=== PATIENT | male | born 1950 | race Caucasian/White ===

== ENCOUNTER 2020-02-29 11:54 | Emergency (ER) | payer OTHER, SELFPAY ==
[2020-02-29] VITALS (7 sets, daily range): BP systolic 138–207; BP diastolic 90–110; PULSE 85–98; RESP 12–31; TEMP 36.9–37.7; O2SAT 94–97; BMI 25.1
--- NOTE | 2020-02-29 12:12 | ED.GENADULT ---
HPI - General Adult General Chief complaint: Weakness Stated complaint: ams x4 days Time Seen by Provider: 02/29/20 12:06 Source: EMS Mode of arrival: EMS Limitations: no limitations History of Present Illness HPI narrative: This is a 70-year-old male who is a vet served when he was a teen up until the age 23 with past medical history that is significant for Parkinson's disease with history of hallucinations, multiple sclerosis, dementia, diverticular infection the past, dyslipidemia, COPD, anxiety disorder, history of AAA per is about 4 cm in being monitored by vascular and surgical history significant for back surgery in his mid 20s of his lumbar spine Whom presents via EMS from home with complaint of fall. Per EMS has had couple falls at home and overall has been more confused over the past 4 days or so and lives at home with . Patient does arrive with cervical collar in place by EMS although he is very slow with his speech she does report that he had a fall at home. He is alert and oriented x3. no focal neurological deficits appreciated upon arrival. I did have a lengthy conversation with the as documented below. At the moment he reports some vague pain in his lower abdomen per he has chronic pain that is generalized however he did complain of some nausea or past several weeks. No vomiting diarrhea. No recent travel or sick contacts. Refer to my phone conversation with the below. Onset (ago): day(s) Severity: mild Pain Consistency: constant Relieving factors: none Exacerbating factors: none Associated symptoms: denies other symptoms Related Data Home Medications Medication Instructions Recorded Confirmed carbidopa-levodopa 1 tab PO 6XD 02/29/20 02/29/20 clonazepam 0.25 mg PO BEDTIME 02/29/20 02/29/20 duloxetine [Cymbalta] 60 mg PO QAM 02/29/20 02/29/20 gabapentin 300 mg PO TID 02/29/20 02/29/20 trazodone 150 mg PO BEDTIME PRN 02/29/20 02/29/20 Allergies Allergy/AdvReac Type Severity Reaction Status Date / Time No Known Allergies Allergy Verified 02/29/20 11:59 [No Known Allergies*] Review of Systems Review of Systems: Constitutional: No Weight loss, No Fever, No Chills, No Night Sweats, No Fatigue, No Malaise ENT/Mouth: No Hearing loss, No Ear Pain, No Nasal Congestion, No Sinus Pain, No Hoarseness, No sore throat, No Rhinorrhea, No Swallowing Difficulty Eyes: No Eye Pain, No Swelling, No Redness, No Foreign Body, No Discharge, No Vision Changes Cardiovascular: No Chest Pain, No SOB, No Dyspnea on Exertion, No Orthopnea, No Edema, No Palpitations Respiratory: No Cough, No Sputum, No Wheezing, No Smoke Exposure, No Dyspnea Gastrointestinal: No Nausea, No Vomiting, No Diarrhea, No Constipation, + abdominal Pain, No Hematochezia, No Melena Genitourinary: No Dysuria, No Urinary Frequency, No Hematuria, No Urinary Incontinence, No Urgency, No Flank Pain, No Urinary Flow Changes, No Hesitancy Musculoskeletal: No joint pain, No Myalgias, No Joint Swelling Skin: No Skin Lesions, No rash Neuro: No Weakness, No Numbness, No Paresthesias, No Loss of Consciousness, No Dizziness, No Headache Psych: No Anxiety/Panic Heme/Lymph: No Bruising, No Bleeding,No Lymphadenopathy Endocrine: No Polyuria, No Polydipsia, No Temperature Intolerance Yes all other systems are reviewed and are negative Neurologic: Reports Abnormal speech present [facility] [place] Past Medical History Medical History Hypertension Multiple sclerosis Parkinsons Social History Social History Alcohol intake: unknown Smoking Status: Unknown if ever smoked Use of substances other than those prescribed or required for medical reasons: Unknown Advance Directives: No Advance Directives Information Provided: No Physical Exam Vital Signs: Vital Signs: Last Vital Signs Temp 99.1 F 02/29/20 19:12 Pulse 98 02/29/20 19:12 Resp 16 02/29/20 19:12 BP 176/91 H 02/29/20 19:12 Pulse Ox 94 02/29/20 19:12 Body Mass Index 25.1 Reviewed Const: Other: appears older than stated age General: cooperative; No acute distress or intoxicated appearing Nutritional Appearance: average body habitus Orientation/consciousness: patient oriented x3 Limitations: other limitations ( very hard of hearing) HENMT: Head: Yes normal to inspection Ears: hearing grossly normal bilaterally Eyes: General: appearance normal, both eyes and all related structures Visual Alonso: normal visual alonso by confrontation Neck: Neck: Yes normal visual inspection, No positive Brudzinski's sign, No positive Kernig's sign and No tender Thyroid: Thyroid normal Chest: Chest palpation & inspection: normal inspection of the chest Resp: Effort & Inspection: normal respiratory effort Auscultation: clear to auscultation bilaterally Cardio: Jugular venous distension: no JVD Rate: regular rate Rhythm: regular rhythm Heart sounds: S1 normal heart sound present and S2 normal heart sound present GI: Inspection: Yes normal to inspection Palpation (GI): Soft to palpation, nontender, no pulsatile masses and No Rebound tenderness present Percussion: Yes normal to percussion Auscultation: normal bowel sounds : General: Yes no CVA tenderness Back/Spine/Pelvis: Back: no CVA tenderness Skin: General skin exam: no rashes or lesions noted Neuro: General: patient oriented x3 Cranial nerves: Yes CN's II-XII intact bilaterally Cognition (Neuro): normal cognition Speech: Abnormal speech present Extrem: General: Yes normal to inspection Psych: Appearance: grossly normal Mental Status: mental status grossly normal Speech and movement: Normal speech and movement present Affect: normal affect Attitude: cooperative Thought process: Normal thought process present Thought content: Normal thought content present Insight: Good insight present (Psych) Judgement: Good judgement present (Psych) NIH Stroke Scale Internal: Initial- Upon Arrival Level of Consciousness: Alert Level of Consciousness Questions: Answers both questions correctly Level of Consciousness Commands: Performs both tasks correctly Best Gaze: Normal Visual: No visual loss Facial Palsy: Normal Motor Arm (Right): No drift Motor Arm (Left): No drift Motor Leg (Right): No drift Motor Leg (Left): No drift Limb Ataxia: Absent Sensory: Normal Best Language: No aphasia Dysarthia: Normal Extinction and Inattention: No abnormality Score: 0 Course Reevaluation(s) Reevaluation #1: 1215: Clarissa our 20 minute conversation summary at 57 dx with MS and parkinsons with hallucinations and behavioral problems Few weeks ago he feel in his room unwitnessed while she was outside mostly bed but does walk with assist over past few days more calling her name more at times which he has done in past last night son was visiting he fell again in his room son and helped him up over last night he fell again in his room This morning called VNA services as she felt she would need help taking care of him at home The VNA advised to come to ED for Eval given that he may have hit his head per has chronic back pain but nothing new since the fall Recently started on gabapentin being followed by Dr. Angulo Social: Past few years VNA in[facility]out [facility] paperwork done but pt declined but last fall [facility] but the pandemic hit She states [facility] She did look into [facility] But feels like she can not take care of home as she is elder she has COPD and is getting to much. CODE status discussion is HCP states not written yet she would like to form a [facility]- but she FULL CODE AT THIS TIME. Reevaluation #2: 1345 Head/ cervical spine CT neg, collar removed Resting comfortably CBC comparable to previous initial troponin resulted 4.4 remainder of the chemistries are still pending I did have a discussion with case management team regarding this case. Reevaluation #3: 1350 UA negative he did have a COVID-19 screen swab done for potential placement and at this time it is positive. He is hypodynamically stable. No upper respiratory symptoms. Case mng aware can still be placed if no medical reason for admit. Request PT eval. also informed at the time chem hemolized, reordered BP also elevated ? pain will tx with morphine and re-check. Asymptomatic otherwise Additional Reevaluation(s): [address] findings as reviewed below case discussed with vascular surgery Dr. Joseph. Will follow-up in a month. As it relates to his COVID chest x-ray, CT of the abdomen shows clear bases of the lungs. Patient hemodynamically stable. He is COVID positive again at this time pending PT evaluation in the morning and placement at short-term rehab. Patient will be signed out pending placement tomorrow morning. Medication reconciliation done and medications ordered. Consultations Consultation #1: Case discussed with Dr. Joseph vascular surgery regarding the CT scan findings of the infrarenal aortic aneurysm which is known to the patient being monitored on outpatient basis. There is some increase in size from May 2018 to today. This matter again was discussed with Dr. Joseph his recommendation at this point is to have the patient follow-up in the office in 1 month for re-evaluation and re-scanned. No further recommendations at this time. Medical Decision Making Medical Records Medical records reviewed: Yes I reviewed the patient's medical records. Medical records narrative: admission from 09/12/2018 reviewed discharge diagnosis hep a, acute liver failure, dementia with Parkinson's Lab Data Result diagrams: 02/29/20 12:33 02/29/20 13:58 Labs: Lab Results 02/29/20 02/29/20 02/29/20 Range/Units 12:30 12:30 12:33 WBC (4.8-10.8) X10*3/uL RBC (4.60-5.80) X10*6/uL Hgb (14.0-18.0) g/dl Hct (42-52) % MCV (80-98) fL MCH (27.0-33.0) pg MCHC (31.0-36.0) g/dl RDW (11.0-16.0) % Plt Count (160-400) X10*3/uL MPV (9.4-12.4) fL Immature Gran % (Auto) (0.0-0.4) % Neut % (Auto) (45-73) % Lymph % (Auto) (20-40) % [place] % (Auto) (2-11) % Eos % (Auto) (0-4) % Baso % (Auto) (0-2) % Lymph # (Auto) (1.2-4.9) X10*3/uL [place] # (Auto) (0.1-1.2) X10*3/uL Eos # (Auto) (0.0-0.4) X10*3/uL Baso # (Auto) (0.0-0.2) X10*3/uL Abs Immat Gran (auto) (0.00-0.03) X10*3/uL Absolute Neuts (auto) (2.0-8.3) X10*3/uL Absolute Nucleated RBC (0.0-0.012) X10*3/uL Nucleated RBC % (auto) (0.0-0.2) /100WBC PT (10.8-13.0) SEC INR (0.9-1.1) APTT (24.1-38.0) SEC Sodium Cancelled Potassium Cancelled Chloride Cancelled Carbon Dioxide Cancelled Anion Gap Cancelled BUN Cancelled Creatinine Cancelled Estim Creat Clear Calc Cancelled Estimated GFR Cancelled Random Glucose Cancelled Calcium Cancelled Magnesium Cancelled Total Bilirubin Cancelled AST Cancelled ALT Cancelled Alkaline Phosphatase Cancelled Troponin I High Sens (<3.5-35.0) ng/L Total Protein Cancelled Albumin Cancelled Urine Color YELLOW Urine Appearance HAZY Urine pH 6.5 (5.0-8.0) Ur Specific [place] 1.025 (1.005-1.025) Urine Protein NEG (NEG-TRACE) MG/DL Urine Glucose (UA) NEG (NEG) MG/DL Urine Ketones 5 (NEG) MG/DL Urine Blood NEG (NEG) Urine Nitrite NEG (NEG) Ur Leukocyte Esterase NEG (NEG) Urine RBC 0-2 (0) /HPF Urine WBC 0 (0-4) /HPF Ur Squamous Epith Cells NONE /LPF Urine Bacteria NONE /LPF Urine Mucus 1+ /LPF Coronavirus (PCR) POSITIVE A (Negative) Influenza Type A (PCR) NEGATIVE (Negative) Influenza Type B (PCR) NEGATIVE (Negative) RSV RNA Qual (PCR) NEGATIVE (Negative) 02/29/20 02/29/20 02/29/20 Range/Units 12:33 12:33 12:33 WBC 4.3 L (4.8-10.8) X10*3/uL RBC 4.76 (4.60-5.80) X10*6/uL Hgb 14.5 (14.0-18.0) g/dl Hct 43.4 (42-52) % MCV 91.2 (80-98) fL MCH 30.5 (27.0-33.0) pg MCHC 33.4 (31.0-36.0) g/dl RDW 12.7 (11.0-16.0) % Plt Count 166 (160-400) X10*3/uL MPV 10.9 (9.4-12.4) fL Immature Gran % (Auto) 0.5 H (0.0-0.4) % Neut % (Auto) 59.6 (45-73) % Lymph % (Auto) 21.1 (20-40) % [place] % (Auto) 18.1 H (2-11) % Eos % (Auto) 0.2 (0-4) % Baso % (Auto) 0.5 (0-2) % Lymph # (Auto) 0.9 L (1.2-4.9) X10*3/uL [place] # (Auto) 0.8 (0.1-1.2) X10*3/uL Eos # (Auto) 0.0 (0.0-0.4) X10*3/uL Baso # (Auto) 0.0 (0.0-0.2) X10*3/uL Abs Immat Gran (auto) 0.02 (0.00-0.03) X10*3/uL Absolute Neuts (auto) 2.6 (2.0-8.3) X10*3/uL Absolute Nucleated RBC 0.000 (0.0-0.012) X10*3/uL Nucleated RBC % (auto) 0.0 (0.0-0.2) /100WBC PT 12.7 (10.8-13.0) SEC INR 1.1 (0.9-1.1) APTT 35.3 (24.1-38.0) SEC Sodium Potassium Chloride Carbon Dioxide Anion Gap BUN Creatinine Estim Creat Clear Calc Estimated GFR Random Glucose Calcium Magnesium Total Bilirubin AST ALT Alkaline Phosphatase Troponin I High Sens 4.4 (<3.5-35.0) ng/L Total Protein Albumin Urine Color Urine Appearance Urine pH (5.0-8.0) Ur Specific [place] (1.005-1.025) Urine Protein (NEG-TRACE) MG/DL Urine Glucose (UA) (NEG) MG/DL Urine Ketones (NEG) MG/DL Urine Blood (NEG) Urine Nitrite (NEG) Ur Leukocyte Esterase (NEG) Urine RBC (0) /HPF Urine WBC (0-4) /HPF Ur Squamous Epith Cells /LPF Urine Bacteria /LPF Urine Mucus /LPF Coronavirus (PCR) (Negative) Influenza Type A (PCR) (Negative) Influenza Type B (PCR) (Negative) RSV RNA Qual (PCR) (Negative) 02/29/20 Range/Units 13:58 WBC (4.8-10.8) X10*3/uL RBC (4.60-5.80) X10*6/uL Hgb (14.0-18.0) g/dl Hct (42-52) % MCV (80-98) fL MCH (27.0-33.0) pg MCHC (31.0-36.0) g/dl RDW (11.0-16.0) % Plt Count (160-400) X10*3/uL MPV (9.4-12.4) fL Immature Gran % (Auto) (0.0-0.4) % Neut % (Auto) (45-73) % Lymph % (Auto) (20-40) % [place] % (Auto) (2-11) % Eos % (Auto) (0-4) % Baso % (Auto) (0-2) % Lymph # (Auto) (1.2-4.9) X10*3/uL [place] # (Auto) (0.1-1.2) X10*3/uL Eos # (Auto) (0.0-0.4) X10*3/uL Baso # (Auto) (0.0-0.2) X10*3/uL Abs Immat Gran (auto) (0.00-0.03) X10*3/uL Absolute Neuts (auto) (2.0-8.3) X10*3/uL Absolute Nucleated RBC (0.0-0.012) X10*3/uL Nucleated RBC % (auto) (0.0-0.2) /100WBC PT (10.8-13.0) SEC INR (0.9-1.1) APTT (24.1-38.0) SEC Sodium 138 Potassium 4.0 Chloride 104 Carbon Dioxide 25 Anion Gap 13 BUN 11 Creatinine 0.91 Estim Creat Clear Calc 72.0 Estimated GFR > 60 Random Glucose 102 Calcium 8.5 Magnesium 1.9 Total Bilirubin 0.5 AST 12 ALT < 6 Alkaline Phosphatase 95 Troponin I High Sens (<3.5-35.0) ng/L Total Protein 7.1 Albumin 4.4 Urine Color Urine Appearance Urine pH (5.0-8.0) Ur Specific [place] (1.005-1.025) Urine Protein (NEG-TRACE) MG/DL Urine Glucose (UA) (NEG) MG/DL Urine Ketones (NEG) MG/DL Urine Blood (NEG) Urine Nitrite (NEG) Ur Leukocyte Esterase (NEG) Urine RBC (0) /HPF Urine WBC (0-4) /HPF Ur Squamous Epith Cells /LPF Urine Bacteria /LPF Urine Mucus /LPF Coronavirus (PCR) (Negative) Influenza Type A (PCR) (Negative) Influenza Type B (PCR) (Negative) RSV RNA Qual (PCR) (Negative) Imaging Data CT scan - abdomen: Radiologist's impression: [address] [address] [address] Scan Report Signed Patient: Jalil EsquivleMR#: [id number] : 9Acct:[id number] Age/Sex: 70 / MADM Date: 02/29/20 Loc: HO.ED Attending Dr: Ordering Physician: Jareth Garibay NP Date of Service: 02/29/20 Procedure(s): CT abdomen pelvis w con Accession Number(s): [id number] cc: Jareth Garibay BL[employer]ATHER [employer]TER~ EXAMINATION: CT ABDOMEN AND PELVIS WITH CONTRAST CLINICAL INFORMATION: Abdominal pain COMPARISON: June 10, 2018 TECHNIQUE: Multidetector volumetric images were obtained from the superior aspect of the liver through the pubic symphysis following administration 85 mL of Omnipaque 350 intravenous contrast. Sagittal and coronal reformatted images were obtained on the technologist's workstation. Oral contrast: No This CT examination was performed using dose optimization techniques as appropriate, variously including the following: *Automated exposure control *Adjustment of mA and/or kV according to patient size (this includes techniques or standardized protocols for targeted exams where dose is matched to indication/reason for exam; i.e. extremities or head) *Use of iterative reconstruction technique DLP: 483 mGy-cm FINDINGS: LUNG BASES: The visualized lung bases are unremarkable. No pleural or pericardial effusion. LIVER, GALLBLADDER, AND BILIARY TREE: The liver is normal in size, shape, and attenuation. No focal hepatic lesion or biliary ductal dilatation is present. There is a sub-5 mm cyst seen within segment 8. The gallbladder is unremarkable with no evidence of radiopaque gallstones, gallbladder wall thickening, or obvious pericholecystic inflammatory changes. PANCREAS: Unremarkable. SPLEEN: Unremarkable. ADRENAL GLANDS: Unremarkable. KIDNEYS AND URETERS: The kidneys are normal in size, shape, and attenuation. No hydronephrosis, hydroureter, or calculi seen. No perinephric stranding. There is a 1 cm right parapelvic cyst and a 0.5 cm right cortical cyst. BLADDER: Unremarkable. GASTROINTESTINAL TRACT: No dilated loops of large or small bowel are evident. No free abdominal air. No free fluid. No pericolonic inflammatory change. No evidence of acute diverticulitis. The appendix is visualized and appears unremarkable. There is a large amount stool seen within the colon. ABDOMINAL WALL: No significant hernia is appreciated. LYMPH NODES: No lymphadenopathy appreciated. VASCULAR: There is an approximately 4.6 x 4.2 cm infrarenal abdominal aortic aneurysm with large amount of thrombus and patent lumen of approximately 2.6 cm in diameter. The aneurysm extends for a length of approximately 6 cm and does not extend into the bifurcation. The inferior mesenteric artery is seen to takeoff from the aneurysmal portion of the abdominal aorta. There is calcified plaque seen aortoiliac system. There are circumaortic left renal veins. PELVIC VISCERA: Unremarkable. OSSEOUS STRUCTURES: No suspicious destructive bony lesions identified. Multilevel degenerative disc disease is seen within the lumbar spine. There is some degenerative change of the sacroiliac joints bilaterally. There is a grade 1 spinal listhesis L4-L5. Facet arthropathy is seen L3-S1. CT/CT abdomen pelvis w con IMPRESSION: No evidence of bowel obstruction. Large amount stool within the colon. No evidence of obstructive uropathy. Enlarging infrarenal abdominal aortic aneurysm which on study of June 10, 2018 measured approximately 3.9 cm in AP dimension and now measures approximately 4.6 cm in diameter. No evidence of leak. This critical result was discussed with Jareth Garibay at 4:55 PM on February 29, 2020 and it was ascertained that the content and urgency of the report was understood at the time of direct communication. Dictated By:BLADIMIR ASH MD Signed By:<Electronically signed by BLADIMIR ASH MD in OV>02/29/20 6525 DD/ 1229 TD/TT: Fiberglass Ski Maker: SHIVANI ECG Data Interpretation: normal sinus rhythm Rate 96 Incomplete right bundle branch block Nonspecific T-wave abnormality When compared to 09/15/2018 the QT/QTC duration has improved No significant abnormality was found Discharge Plan Discharge Clinical Impression: Falls, Parkinson's disease, COVID-19 Prescriptions: No Action carbidopa-levodopa 25-100 mg Tablet 1 tab PO 6XD RF: 0 clonazepam 0.25 mg Tablet,Disintegrating 0.25 mg PO BEDTIME RF: 0 duloxetine [Cymbalta] 60 mg Capsule,Delayed Release(Dr/Ec) 60 mg PO QAM RF: 0 gabapentin 300 mg capsule 300 mg PO TID RF: 0 trazodone 150 mg tablet 150 mg PO BEDTIME PRN (Reason: Insomnia) RF: 0
--- NOTE | 2020-02-29 12:13 | XR_ITS ---
EXAMINATION: XR CHEST CLINICAL INFORMATION: Fall, weakness COMPARISON: Chest radiographs 09/15/2018, 06/10/2018 TECHNIQUE: Portable upright AP view of the chest was obtained. FINDINGS: Patient is slightly rotated to the right. The lungs are clear. There is no airspace consolidation or definite groundglass opacity. The costophrenic sulci are clear. The heart is normal in size. The hilar and mediastinal contours and bony structures are unremarkable. XR/XR chest 1V IMPRESSION: Unremarkable examination.
--- NOTE | 2020-02-29 12:14 | CT_ITS ---
EXAMINATION: CT BRAIN AND CT CERVICAL SPINE. CLINICAL INFORMATION: Fall. COMPARISON: CT brain 09/21/2018 TECHNIQUE: 5 mm thin axial and reformatted 2 mm thin sagittal and coronal images of brain were obtained. Subsequently axial 3 mm thin and reformatted 2 mm thin sagittal and coronal images of cervical spine were obtained. DL [id number] FINDINGS: BRAIN: There is no acute intra-axial, extra-axial bleed, masses, collection or midline shift though acute infarct in evolution. The james to white matter differentiation is maintained. The lateral ventricles are symmetrical in size and mildly prominent. There is mild periventricular hypodensity in both cerebral hemispheres without mass effect. Bone windows reveal no calvarial abnormality. There is a small polyp or retention cyst left sphenoid sinus. Rest of the paranasal sinuses and mastoid air cells are well-aerated.. There is no scalp abnormality. The soft tissues are normal. CERVICAL SPINE: There is mild straightening of cervical lordosis. The vertebral heights and alignment is normal. There is loss of C4-C5, C5-C6 disc heights with ventral spondylosis.. Rest of the disc heights are normal. The craniovertebral junction is normal. There is mild superior spurring C1-C2 disc level. There is no visible acute fracture, dislocation or subluxation. There is moderate right facet joint arthropathy C3-C4, C4-C5, C5-C6, C7-T1 and T2 and S2 disc levels disc levels. The prevertebral and paravertebral soft tissues are normal. The lung apices are clear. CT/CT cervical spine wo con IMPRESSION: No acute intracranial process seen. Degenerative disc changes cervical spine. No visible acute fracture or dislocation seen.
--- NOTE | 2020-02-29 12:14 | ECG_ITS ---
Test Reason : FALL Blood Pressure : / mmHG Vent. Rate : 096 BPM Atrial Rate : 096 BPM P-R Int : 166 ms QRS Dur : 100 ms QT Int : 348 ms P-R-T Axes : 085 048 043 degrees QTc Int : 439 ms Normal sinus rhythm Incomplete right bundle branch block Nonspecific ST abnormality Abnormal ECG When compared with ECG of 15-SEP-2018 12:56, T wave inversion no longer evident in Lateral leads Referred By: Jareth Garibay Electronically Signed By:LEW MATHEWS MD
--- NOTE | 2020-02-29 12:29 | CT_ITS ---
EXAMINATION: CT ABDOMEN AND PELVIS WITH CONTRAST CLINICAL INFORMATION: Abdominal pain COMPARISON: June 10, 2018 TECHNIQUE: Multidetector volumetric images were obtained from the superior aspect of the liver through the pubic symphysis following administration 85 mL of Omnipaque 350 intravenous contrast. Sagittal and coronal reformatted images were obtained on the technologist's workstation. Oral contrast: No This CT examination was performed using dose optimization techniques as appropriate, variously including the following: *Automated exposure control *Adjustment of mA and/or kV according to patient size (this includes techniques or standardized protocols for targeted exams where dose is matched to indication/reason for exam; i.e. extremities or head) *Use of iterative reconstruction technique DLP: 483 mGy-cm FINDINGS: LUNG BASES: The visualized lung bases are unremarkable. No pleural or pericardial effusion. LIVER, GALLBLADDER, AND BILIARY TREE: The liver is normal in size, shape, and attenuation. No focal hepatic lesion or biliary ductal dilatation is present. There is a sub-5 mm cyst seen within segment 8. The gallbladder is unremarkable with no evidence of radiopaque gallstones, gallbladder wall thickening, or obvious pericholecystic inflammatory changes. PANCREAS: Unremarkable. SPLEEN: Unremarkable. ADRENAL GLANDS: Unremarkable. KIDNEYS AND URETERS: The kidneys are normal in size, shape, and attenuation. No hydronephrosis, hydroureter, or calculi seen. No perinephric stranding. There is a 1 cm right parapelvic cyst and a 0.5 cm right cortical cyst. BLADDER: Unremarkable. GASTROINTESTINAL TRACT: No dilated loops of large or small bowel are evident. No free abdominal air. No free fluid. No pericolonic inflammatory change. No evidence of acute diverticulitis. The appendix is visualized and appears unremarkable. There is a large amount stool seen within the colon. ABDOMINAL WALL: No significant hernia is appreciated. LYMPH NODES: No lymphadenopathy appreciated. VASCULAR: There is an approximately 4.6 x 4.2 cm infrarenal abdominal aortic aneurysm with large amount of thrombus and patent lumen of approximately 2.6 cm in diameter. The aneurysm extends for a length of approximately 6 cm and does not extend into the bifurcation. The inferior mesenteric artery is seen to takeoff from the aneurysmal portion of the abdominal aorta. There is calcified plaque seen aortoiliac system. There are circumaortic left renal veins. PELVIC VISCERA: Unremarkable. OSSEOUS STRUCTURES: No suspicious destructive bony lesions identified. Multilevel degenerative disc disease is seen within the lumbar spine. There is some degenerative change of the sacroiliac joints bilaterally. There is a grade 1 spinal listhesis L4-L5. Facet arthropathy is seen L3-S1. CT/CT abdomen pelvis w con IMPRESSION: No evidence of bowel obstruction. Large amount stool within the colon. No evidence of obstructive uropathy. Enlarging infrarenal abdominal aortic aneurysm which on study of June 10, 2018 measured approximately 3.9 cm in AP dimension and now measures approximately 4.6 cm in diameter. No evidence of leak. This critical result was discussed with Jareth Garibay at 4:55 PM on February 29, 2020 and it was ascertained that the content and urgency of the report was understood at the time of direct communication.
[2020-02-29] MEDS: 0.9 % Sodium Chloride 1,000 ML 999 ML IV (12:40)
[2020-02-29 12:41] LABS: MANUAL DIFF FLAG NO
[2020-02-29 12:45] LABS: Basophils Percent Auto 0.5 % (0-2); Eosinophils Percent Auto 0.2 % (0-4); Hematocrit 43.4 % (42-52); Hemoglobin 14.5 g/dl (14.0-18.0); Imm Gran Abs Auto 0.02 X10*3/uL (0.00-0.03); Imm Gran Pct Auto 0.5 % (0.0-0.4); Lymphocytes Absolute Auto 0.9 X10*3/uL (1.2-4.9); Lymphocytes Percent Auto 21.1 % (20-40); Mean Corpuscular HGB Conc 33.4 g/dl (31.0-36.0); Mean Corpuscular Hemoglobin 30.5 pg (27.0-33.0); Mean Corpuscular Volume 91.2 fL (80-98); Mean Platelet Volume 10.9 fL (9.4-12.4); Monocytes Absolute Auto 0.8 X10*3/uL (0.1-1.2); Monocytes Percent Auto 18.1 % (2-11); Neutrophils Absolute Auto 2.6 X10*3/uL (2.0-8.3); Neutrophils Percent Auto 59.6 % (45-73); Platelet Count 166 X10*3/uL (160-400); Red Blood Count 4.76 X10*6/uL (4.60-5.80); Red Cell Distribution Width 12.7 % (11.0-16.0); White Blood Count 4.3 X10*3/uL (4.8-10.8)
[2020-02-29 12:51] LABS: Glucose Urine UA NEG (NEG); Leukocyte Esterase Urine NEG (NEG); Nitrite Urine NEG (NEG); PH 6.5 (5.0-8.0); Specific Gravity - Urine 1.025 (1.005-1.025); Urine Blood NEG (NEG); Urine Ketones 5 MG/DL (NEG); Urine Protein NEG (NEG-TRACE)
[2020-02-29 12:51] LABS: INTERNATIONAL NORM RATIO 1.1 (0.9-1.1); Prothrombin Time 12.7 SEC (10.8-13.0)
[2020-02-29 12:54] LABS: Partial Thromboplastin Time 35.3 SEC (24.1-38.0)
[2020-02-29 12:56] LABS: Color Urine YELLOW
[2020-02-29 12:57] LABS: Appearance Urine HAZY
[2020-02-29 13:03] LABS: Mucus Urine 1+ /LPF; RBC Urine 0-2 /HPF (0); WBC Urine 0 /HPF (0-4)
[2020-02-29 13:15] LABS: Troponin-I High Sensitivity 4.4 ng/L (<3.5-35.0)
[2020-02-29 13:18] LABS: Influenza A PCR NEGATIVE (Negative); Influenza B PCR NEGATIVE (Negative); Resp Syncy Virus RNA Qual PCR NEGATIVE (Negative); SARS COV2 PCR INHOUSE POSITIVE (Negative)
[2020-02-29] MEDS: Morphine Sulfate 4 MG/ML CARTRIDGE 2 MG IVPUSH (14:14)
[2020-02-29] MEDS: ondansetron HCL 4 MG/2 ML VIAL IVPUSH (14:15)
[2020-02-29 14:47] LABS: Albumin Level 4.4 g/dL (3.5-5.0); Alkaline Phosphatase 95 U/L (39-117); Anion Gap 13 (12-20); Aspartate Amino Transferase 12 U/L (5-37); Bilirubin Total 0.5 mg/dL (0.0-1.0); Blood Urea Nitrogen 11 mg/dL (9-16); Calcium 8.5 mg/dL (8.4-10.2); Carbon Dioxide 25 mmol/L (22-29); Chloride 104 mmol/L (96-108); Estimated Glomerular Filt Rate > 60; Glucose Random 102 mg/dL (60-115); Magnesium 1.9 mg/dL (1.6-2.6); Sodium 138 mmol/L (135-145); Total Protein 7.1 g/dL (6.5-8.0)
[2020-02-29 15:00] LABS: Alanine Aminotransferase < 6 U/L (0-40)
[2020-02-29] MEDS: iohexoL 350 MG/ML 100 ML INFUS..BTL IV (16:02)
--- NOTE | 2020-02-29 16:35 | MHC.CM.ED ---
Received case management consult from MERON [facility]. Patient came to ER due to weekness. Work essentially negative. Patient found to be covid positive. Spoke with patient's . Explained patient is Covid positive and recommendations for Quarantining and Covid testing. Patient lives with Clarissa. Patient will be seen by physical therapy tomorrow morning. Clarissa agreeable to referral being broadcasted to see which facilities can offer a bed. Anticipate patient will remain in ER overnight. Clarissa verbalized understanding. Continue to monitor for d/c needs.
--- NOTE | 2020-02-29 17:35 | PC.NURSE ---
report taken from jaylon wolfe pt moved to isolation area d/t covid+. pt awaiting snf placement by case mgmt. pt attempting to get up from stretcher, sts i need to pee . pt appears to have peed on floor. sts my is gonna think i suck . back to bed w/o incident.
--- NOTE | 2020-02-29 17:59 | PC.NURSE ---
pt pivoted to commode x 2 for void.
--- NOTE | 2020-02-29 19:24 | PC.NURSE ---
Patient with urinary urgency otherwise calm and cooperative. Aware of person and place. Unsure of reason as to why he is here.
--- NOTE | 2020-02-29 20:29 | PC.NURSE ---
Spoke with Clarissa () on phone for med list. All meds updated and will be ordered by OBSTETRICS/GYNECOLOGY NURSE. [place] cath placed for frequent urination.
[2020-02-29] MEDS: clonazePAM 0.5 MG TABLET 0.25 MG PO (20:54)
[2020-02-29] MEDS: Carbidopa/Levodopa 25/100 TABLET 1 TAB PO (20:54)
[2020-02-29] MEDS: Gabapentin 300 MG CAPSULE PO (20:55)
[2020-02-29] MEDS: traZODone HCL 50 MG TABLET 150 MG PO (20:55)
[2020-02-29] MEDS: Carbidopa/Levodopa 25/100 TABLET 2 TAB PO (21:07)
--- NOTE | 2020-02-29 21:40 | PC.NURSE ---
HS medications given. Patient sleeping. [place] cath remains in place. BP WNL. Will continue to monitor.
[2020-03-01 02:05] VITALS: PULSE 81; RESP 16
[2020-03-01 03:59] VITALS: BP 163/102; PULSE 87; RESP 18; TEMP 37.2; O2SAT 94
[2020-03-01 06:17] VITALS: BP 147/87; PULSE 86; RESP 18; TEMP 36.4; O2SAT 96
[2020-03-01] MEDS: Carbidopa/Levodopa 25/100 TABLET 2 TAB PO ×2 (06:59→09:53)
[2020-03-01 07:38] VITALS: BP 147/87; PULSE 86; O2SAT 96
--- NOTE | 2020-03-01 09:27 | MHC.CM.ED ---
Patient remains in ER. Spoke with patient's Clarissa via telephone at [phone]. [facility] is only facility in the area that is able to offer a bed at this time. is agreeable to [facility]. Karen at [facility] aware and will attempt to obtain insurance auth. Continue to monitor for d/c needs.
[2020-03-01] MEDS: Gabapentin 300 MG CAPSULE PO (09:30)
[2020-03-01] MEDS: DULoxetine HCl 60 MG CAPSULE.DR PO (09:31)
[2020-03-01 09:54] VITALS: BP 147/96; PULSE 88; RESP 18; O2SAT 96
[2020-03-01 11:48] VITALS: BP 148/96; PULSE 88; RESP 18; TEMP 37.1; O2SAT 97
== END 2020-03-05 07:21 | disposition skilled nursing facility (03) ==
PROVIDERS: Nurse Practitioner Primary Care; Emergency Provider Emergency Medicine; PCP Internal Medicine
DX: U07.1 COVID-19 (principal); R53.1 Weakness; I71.4 Abdominal aortic aneurysm, without rupture; G20 Parkinson's disease; F02.81 Dementia in other diseases classified elsewhere, unspecified severity, with behavioral disturbance; Z91.81 History of falling; I10 Essential (primary) hypertension; G35 Multiple sclerosis; Z79.899 Other long term (current) drug therapy
CPT/HCPCS: 0241U; 36415; 70450; 71045; 72125; 74177; 80053; 81001; 83735; 84484; 85025; 85610; 85730; 93005; 97163; 99284; J2270; J2405; Q9967

== ENCOUNTER 2020-03-02 07:41 | Outpatient (REF) | payer OTHER, SELFPAY ==
[2020-03-02 09:33] LABS: MANUAL DIFF FLAG NO
[2020-03-02 09:39] LABS: Basophils Percent Auto 0.2 % (0-2); Hematocrit 47.3 % (42-52); Imm Gran Abs Auto 0.01 X10*3/uL (0.00-0.03); Imm Gran Pct Auto 0.2 % (0.0-0.4); Lymphocytes Absolute Auto 1.4 X10*3/uL (1.2-4.9); Mean Corpuscular HGB Conc 33.8 g/dl (31.0-36.0); Mean Corpuscular Hemoglobin 30.8 pg (27.0-33.0); Mean Platelet Volume 11.7 fL (9.4-12.4); Monocytes Absolute Auto 0.9 X10*3/uL (0.1-1.2); Monocytes Percent Auto 14.6 % (2-11); Neutrophils Absolute Auto 3.9 X10*3/uL (2.0-8.3); Platelet Count 196 X10*3/uL (160-400); Red Cell Distribution Width 12.9 % (11.0-16.0); White Blood Count 6.2 X10*3/uL (4.8-10.8)
[2020-03-02 10:00] LABS: Alanine Aminotransferase 9 U/L (0-40); Albumin Level 4.4 g/dL (3.5-5.0); Alkaline Phosphatase 89 U/L (39-117); Anion Gap 18 (12-20); Aspartate Amino Transferase 28 U/L (5-37); Bilirubin Total 0.7 mg/dL (0.0-1.0); Blood Urea Nitrogen 21 mg/dL (9-16); Calcium 8.9 mg/dL (8.4-10.2); Carbon Dioxide 23 mmol/L (22-29); Chloride 100 mmol/L (96-108); Estimated Glomerular Filt Rate > 60; Glucose Random 95 mg/dL (60-115); Potassium 4.3 mmol/l (3.3-5.1); Sodium 137 mmol/L (135-145); Total Protein 7.5 g/dL (6.5-8.0)
== END 2020-03-02 07:42 | disposition home or self-care (01) ==
LOC: HO.MMNH1L 07:41
PROVIDERS: Visit Provider Family Medicine
DX: D64.9 Anemia, unspecified (principal); G20 Parkinson's disease; U07.1 COVID-19
CPT/HCPCS: 36415; 80053; 85025

== ENCOUNTER 2020-03-04 | Outpatient (REF) | payer OTHER, SELFPAY ==
[2020-03-04 07:52] LABS: Hematocrit 48.4 % (42-52); Mean Corpuscular HGB Conc 33.1 g/dl (31.0-36.0); Mean Corpuscular Hemoglobin 30.4 pg (27.0-33.0); Mean Platelet Volume 11.6 fL (9.4-12.4); Platelet Count 179 X10*3/uL (160-400); Red Blood Count 5.26 X10*6/uL (4.60-5.80); Red Cell Distribution Width 12.7 % (11.0-16.0); White Blood Count 4.7 X10*3/uL (4.8-10.8)
[2020-03-04 08:26] LABS: Anion Gap 14 (12-20); Blood Urea Nitrogen 21 mg/dL (9-16); Calcium 8.7 mg/dL (8.4-10.2); Carbon Dioxide 30 mmol/L (22-29); Chloride 98 mmol/L (96-108); Estimated Glomerular Filt Rate > 60; Glucose Random 77 mg/dL (60-115); Potassium 3.9 mmol/l (3.3-5.1); Sodium 138 mmol/L (135-145)
== END 2020-03-04 00:01 | disposition home or self-care (01) ==
LOC: HO.MMNH1L
PROVIDERS: Visit Provider Family Medicine
DX: F03.90 Unspecified dementia, unspecified severity, without behavioral disturbance, psychotic disturbance, mood disturbance, and anxiety (principal)
CPT/HCPCS: 36415; 80048; 85027

== ENCOUNTER 2021-05-22 06:12 | Outpatient (REF) | payer OTHER, SELFPAY ==
[2021-05-22 07:52] LABS: MANUAL DIFF FLAG NO
[2021-05-22 07:53] LABS: Basophils Percent Auto 0.3 % (0-2); Eosinophils Percent Auto 0.6 % (0-4); Hematocrit 40.8 % (42.0-52.0); Hemoglobin 13.4 g/dl (14.0-18.0); Imm Gran Abs Auto 0.03 X10*3/uL (0.00-0.03); Imm Gran Pct Auto 0.5 % (0.0-0.4); Lymphocytes Absolute Auto 1.9 X10*3/uL (1.2-4.9); Lymphocytes Percent Auto 28.8 % (20-40); Mean Corpuscular HGB Conc 32.8 g/dl (31.0-36.0); Mean Corpuscular Hemoglobin 30.7 pg (27.0-33.0); Mean Corpuscular Volume 93.4 fL (80.0-98.0); Mean Platelet Volume 11.2 fL (9.4-12.4); Monocytes Absolute Auto 0.5 X10*3/uL (0.1-1.2); Monocytes Percent Auto 7.8 % (2-11); Neutrophils Absolute Auto 4.1 x10*3/uL (2.0-8.3); Platelet Count 235 X10*3/uL (160-400); Red Blood Count 4.37 X10*6/uL (4.60-5.80); Red Cell Distribution Width 12.7 % (11.0-16.0); White Blood Count 6.6 X10*3/uL (4.8-10.8)
[2021-05-22 07:58] LABS: Appearance Urine HAZY; Color Urine YELLOW; Glucose Urine UA NEG (NEG); Leukocyte Esterase Urine NEG (NEG); Nitrite Urine NEG (NEG); PH 7.5 (5.0-8.0); Specific Gravity - Urine 1.015 (1.005-1.025); Urine Blood NEG (NEG); Urine Ketones NEG (NEG); Urine Protein NEG (NEG-TRACE)
[2021-05-22 08:06] LABS: Alanine Aminotransferase < 6 U/L (0-40); Alkaline Phosphatase 94 U/L (39-117); Anion Gap 13 (12-20); Aspartate Amino Transferase 10 U/L (5-37); Bilirubin Total 0.7 mg/dL (0.0-1.0); Blood Urea Nitrogen 13 mg/dL (9-16); Calcium 9.1 mg/dL (8.4-10.2); Carbon Dioxide 27 mmol/L (22-29); Chloride 104 mmol/L (96-108); Cholesterol 156 mg/dL; Estimated Glomerular Filt Rate > 60; Glucose Fasting 106 mg/dL (60-99); HDL Cholesterol 35 mg/dL; LDL Cholesterol Calculated 109 mg/dl; Potassium 4.2 mmol/L (3.3-5.1); Sodium 140 mmol/L (135-145); Total Protein 6.4 g/dL (6.5-8.0); Triglycerides 60 mg/dL
[2021-05-22 08:26] LABS: Thyroid Stimulating Hormone 1.23 uIU/mL (0.32-4.0)
[2021-05-22 09:08] LABS: Vitamin B12 149 pg/mL (200-900)
[2021-05-24 14:21] LABS: TS Negative Control Passed; TS Panel A 0; TS Panel B 0; TS Positive Control Passed; TSpotTB Negative (Negative)
== END 2021-05-22 06:13 | disposition home or self-care (01) ==
LOC: HO.HSH4E 06:12
PROVIDERS: Visit Provider Internal Medicine Endocrinology, Diabetes & Metabolism
DX: Z02.2 Encounter for examination for admission to residential institution (principal); Z11.1 Encounter for screening for respiratory tuberculosis
CPT/HCPCS: 36415; 80053; 80061; 81003; 82607; 84443; 85025; 86481

== ENCOUNTER 2021-10-31 14:36 | Outpatient (REF) | payer OTHER, SELFPAY ==
[2021-10-31 09:29] LABS: Vitamin B12 385 pg/mL (200-900)
== END 2021-10-31 14:37 | disposition home or self-care (01) ==
LOC: HO.HSH4E 14:36
PROVIDERS: Visit Provider Internal Medicine Endocrinology, Diabetes & Metabolism
DX: D64.9 Anemia, unspecified (principal)
CPT/HCPCS: 36415; 82607

== ENCOUNTER 2022-05-11 06:02 | Outpatient (REF) | payer OTHER, SELFPAY ==
[2022-05-11 07:09] LABS: Anion Gap 11 (12-20); Blood Urea Nitrogen 14 mg/dL (9-16); Calcium 9.4 mg/dL (8.4-10.2); Carbon Dioxide 26 mmol/L (22-29); Chloride 108 mmol/L (96-108); Estimated Glomerular Filt Rate > 60; Glucose Random 102 mg/dL (60-115); Potassium 4.2 mmol/L (3.3-5.1); Sodium 141 mmol/L (135-145)
== END 2022-05-11 06:03 | disposition home or self-care (01) ==
LOC: HO.HSH4E 06:02
PROVIDERS: Visit Provider Internal Medicine
DX: G20 Parkinson's disease (principal)
CPT/HCPCS: 36415; 80048

== ENCOUNTER 2022-08-04 11:16 | Outpatient (REF) | payer OTHER, SELFPAY ==
[2022-08-04 11:36] LABS: Appearance Urine Clear; Color Urine Yellow; Glucose Urine UA Negative (Negative); Leukocyte Esterase Urine Negative (Negative); Nitrite Urine Negative (Negative); PH 5.5 (5.0-9.0); Specific Gravity - Urine 1.025 (1.005-1.025); Urine Blood Negative (Negative); Urine Ketones Trace mg/dL (Negative); Urine Protein Negative (Neg-Trace)
== END 2022-08-04 11:17 | disposition home or self-care (01) ==
LOC: HO.HSH4E 11:16
PROVIDERS: Visit Provider Internal Medicine Endocrinology, Diabetes & Metabolism
DX: I10 Essential (primary) hypertension (principal); G20 Parkinson's disease; R41.82 Altered mental status, unspecified
CPT/HCPCS: 81003

== ENCOUNTER 2022-08-05 06:19 | Outpatient (REF) | payer OTHER, SELFPAY ==
[2022-08-05 06:34] LABS: Basophils Percent Auto 0.6 % (0-2); Eosinophils Absolute Auto 0.1 X10*3/uL (0.0-0.4); Eosinophils Percent Auto 1.2 % (0-4); Hematocrit 43.1 % (42.0-52.0); Hemoglobin 14.4 g/dl (14.0-18.0); Imm Gran Abs Auto 0.03 X10*3/uL (0.00-0.03); Imm Gran Pct Auto 0.6 % (0.0-0.4); Lymphocytes Absolute Auto 1.7 X10*3/uL (1.2-4.9); Lymphocytes Percent Auto 34.3 % (20-40); MANUAL DIFF FLAG SCAN; Mean Corpuscular HGB Conc 33.4 g/dl (31.0-36.0); Mean Corpuscular Hemoglobin 30.9 pg (27.0-33.0); Mean Corpuscular Volume 92.5 fL (80.0-98.0); Monocytes Absolute Auto 0.4 X10*3/uL (0.1-1.2); Monocytes Percent Auto 7.7 % (2-11); Neutrophils Absolute Auto 2.8 x10*3/uL (2.0-8.3); Neutrophils Percent Auto 55.6 % (45-73); PLT CLUMP 1; Red Blood Count 4.66 X10*6/uL (4.60-5.80); Red Cell Distribution Width 12.9 % (11.0-16.0); SCAN SMEAR FLAG 1
[2022-08-05 06:53] LABS: Alanine Aminotransferase < 5 U/L (0-40); Albumin Level 4.2 g/dL (3.5-5.0); Alkaline Phosphatase 67 U/L (39-117); Anion Gap 12 (12-20); Aspartate Amino Transferase 13 U/L (5-37); Bilirubin Total 0.6 mg/dL (0.0-1.0); Blood Urea Nitrogen 16 mg/dL (9-16); Calcium 9.4 mg/dL (8.4-10.2); Carbon Dioxide 24 mmol/L (22-29); Chloride 109 mmol/L (96-108); Estimated Glomerular Filt Rate > 60; Glucose Fasting 86 mg/dL (60-99); Potassium 4.5 mmol/L (3.3-5.1); Sodium 140 mmol/L (135-145); Total Protein 6.6 g/dL (6.5-8.0)
[2022-08-05 06:54] LABS: Platelet Count 139 X10*3/uL (160-400); SLIDE REVIEW VERIFIED; White Blood Count 5.1 X10*3/uL (4.8-10.8)
== END 2022-08-05 06:20 | disposition home or self-care (01) ==
LOC: HO.HSH4E 06:19
PROVIDERS: Visit Provider Internal Medicine Endocrinology, Diabetes & Metabolism
DX: G20 Parkinson's disease (principal); N40.0 Benign prostatic hyperplasia without lower urinary tract symptoms
CPT/HCPCS: 36415; 80053; 85025

== ENCOUNTER 2022-12-02 06:37 | Outpatient (REF) | payer OTHER, SELFPAY ==
[2022-12-02 06:40] LABS: MANUAL DIFF FLAG NO
[2022-12-02 06:53] LABS: Basophils Percent Auto 0.4 % (0-2); Eosinophils Absolute Auto 0.1 X10*3/uL (0.0-0.4); Eosinophils Percent Auto 1.1 % (0-4); Hemoglobin 14.9 g/dl (14.0-18.0); Imm Gran Abs Auto 0.02 X10*3/uL (0.00-0.03); Imm Gran Pct Auto 0.4 % (0.0-0.4); Lymphocytes Absolute Auto 1.6 X10*3/uL (1.2-4.9); Lymphocytes Percent Auto 27.2 % (20-40); Mean Corpuscular HGB Conc 33.9 g/dl (31.0-36.0); Mean Corpuscular Hemoglobin 31.2 pg (27.0-33.0); Mean Corpuscular Volume 92.1 fL (80.0-98.0); Mean Platelet Volume 11.5 fL (9.4-12.4); Monocytes Absolute Auto 0.5 X10*3/uL (0.1-1.2); Monocytes Percent Auto 8.8 % (2-11); Neutrophils Absolute Auto 3.6 x10*3/uL (2.0-8.3); Neutrophils Percent Auto 62.1 % (45-73); Platelet Count 208 X10*3/uL (160-400); Red Blood Count 4.78 X10*6/uL (4.60-5.80); Red Cell Distribution Width 12.2 % (11.0-16.0); White Blood Count 5.7 X10*3/uL (4.8-10.8)
[2022-12-02 07:12] LABS: Alanine Aminotransferase < 5 U/L (0-40); Albumin Level 4.4 g/dL (3.5-5.0); Alkaline Phosphatase 75 U/L (39-117); Anion Gap 14 (12-20); Aspartate Amino Transferase 15 U/L (5-37); Bilirubin Total 0.7 mg/dL (0.0-1.0); Blood Urea Nitrogen 16 mg/dL (9-16); Calcium 9.6 mg/dL (8.4-10.2); Carbon Dioxide 23 mmol/L (22-29); Chloride 108 mmol/L (96-108); Estimated Glomerular Filt Rate > 60; Glucose Fasting 91 mg/dL (60-99); Potassium 3.6 mmol/L (3.3-5.1); Sodium 141 mmol/L (135-145); Total Protein 7.1 g/dL (6.5-8.0)
== END 2022-12-02 06:38 | disposition home or self-care (01) ==
LOC: HO.HSH4E 06:37
PROVIDERS: Visit Provider Internal Medicine
DX: G20 Parkinson's disease (principal); E03.9 Hypothyroidism, unspecified
CPT/HCPCS: 36415; 80053; 84443; 85025

== ENCOUNTER 2022-12-02 20:19 | Emergency (ER) | payer OTHER, SELFPAY ==
--- NOTE | ~2022-12-02 | XR_ITS ---
EXAMINATION: XR CHEST 2 VIEWS CLINICAL INFORMATION: Mental status change COMPARISON: Prior chest radiographs, most recently 02/29/2020. TECHNIQUE: Frontal and lateral views of the chest were obtained. FINDINGS: The heart, great vessels, pulmonary vasculature and mediastinum are normal. The lungs show no focal infiltrate, effusion or pneumothorax. There is mild biapical pleural thickening. There is no acute osseous abnormality. XR/XR chest 1V IMPRESSION: No active cardiopulmonary disease.
--- NOTE | ~2022-12-02 | CT_ITS ---
EXAMINATION: CT ABDOMEN AND PELVIS WITHOUT CONTRAST CLINICAL INFORMATION: Altered mental status. Abdominal pain COMPARISON: CT abdomen pelvis 02/29/2020 TECHNIQUE: Multidetector volumetric imaging was performed from the superior aspect of the liver through the pubic symphysis. Sagittal and coronal reformatted images were obtained on the technologist's workstation. This CT examination was performed using dose optimization techniques as appropriate, variously including the following: *Automated exposure control *Adjustment of mA and/or kV according to patient size (this includes techniques or standardized protocols for targeted exams where dose is matched to indication/reason for exam; i.e. extremities or head) *Use of iterative reconstruction technique DLP: 1297 mGy-cm. FINDINGS: LUNG BASES: The visualized lung bases are unremarkable. LIVER, GALLBLADDER, AND BILIARY TREE: The liver is normal in size, shape, and attenuation. There is a 1.5 cm hypodensity left hepatic lobe. No additional lesions seen. There is no intrahepatic ductal dilatation. The gallbladder is unremarkable with no evidence of radiopaque gallstones, gallbladder wall thickening, or obvious pericholecystic inflammatory changes. PANCREAS: Unremarkable. SPLEEN: Unremarkable. ADRENAL GLANDS: There is mild bilateral adrenal gland enlargement. KIDNEYS AND URETERS: The kidneys are normal in size, shape, and attenuation. No punctate 1 mm radiopaque density upper pole right kidney probable small calcification or stone. No additional radiopaque density seen. There is no caliectasis or hydronephrosis. No perinephric stranding. BLADDER: Unremarkable. GASTROINTESTINAL TRACT: There is moderate scattered stool and gas seen throughout the colon without distention. The small bowel loops are normal caliber. Appendix is normal caliber. No free air or free fluid seen. ABDOMINAL WALL: No significant hernia is appreciated. LYMPH NODES: Normal. VASCULAR: There is diffuse aneurysmal dilatation of entire abdominal aorta. The proximal abdominal aorta measures 2.7 x 2.8 cm on axial image 32/12, mid abdominal aorta measures 4.8 x 4.8 cm, distal abdominal aorta above the common iliac bifurcation measures 2.3 x 3.2 cm. PELVIC VISCERA: There is a right inguinal hernia containing loop of small bowel loop but no proximal bowel obstruction seen. The prostate gland is mildly enlarged OSSEOUS STRUCTURES: There is grade 1 anterolisthesis L4 over L5 with L4-L5 degenerative disc changes and spondylosis. There is Schmorl's nodule superior endplate L2 vertebra. CT/CT abdomen pelvis wo IV con IMPRESSION: Aneurysmal dilatation of abdominal aorta with measurements given above. Bilateral adrenal enlargement. Nonobstructive tiny calcification or stone upper pole right kidney measuring 1 mm. Moderate constipation. Mild prostate enlargement. Right inguinal hernia containing a loop of small bowel without bowel obstruction. Fleischner guidelines were followed.
--- NOTE | ~2022-12-02 | CT_ITS ---
EXAMINATION: CT HEAD WITHOUT CONTRAST CLINICAL INFORMATION: Altered mental status. COMPARISON: 02/29/2020 TECHNIQUE: Contiguous axial imaging was performed from the skull base to vertex without intravenous administration of contrast. This CT examination was performed using dose optimization techniques as appropriate, variously including the following: *Automated exposure control. *Adjustment of mA and/or kV according to patient size (this includes techniques or standardized protocols for targeted exams where dose is matched to indication/reason for exam; i.e. extremities or head). *Use of iterative reconstruction technique. DLP: 729 mGy-cm FINDINGS: There is mild cerebral volume loss with prominence of the lateral and the third ventricles. The cortical sulci are widened appropriately. The fourth ventricle and basal cisterns are normally outlined. There is [id number] bilateral periventricular and central white matter diminished attenuation. There is no acute territorial defect, hemorrhage or midline shift. Calvarium: Intact. Maxillofacial Sinuses and Mastoids: Clear as visualized. CT/CT head/brain wo IV con IMPRESSION: Mild cerebral volume loss and [id number] bilateral periventricular and central white matter diminished attenuation which is nonspecific but likely to represent microvascular disease. There is no acute intracranial abnormality.
[2022-12-02 20:39] VITALS: BP 169/100; PULSE 97; RESP 26; TEMP 37.1; O2SAT 96; BMI 23.7
[2022-12-02 20:42] VITALS: BP 150/86; PULSE 94; O2SAT 97
[2022-12-02 20:44] VITALS: BP 169/100; PULSE 97; RESP 26; TEMP 37.1; O2SAT 96
--- NOTE | 2022-12-02 20:46 | PC.NURSE ---
Pt responds to verbal command. Pt reports 9/10 mid abdm pain. Pt placed on bedside monitor. Plan of care ongoing.
--- NOTE | 2022-12-02 21:27 | PHA.MEDREC ---
Pharmacy Consult ? Medication Reconciliation Pharmacy has completed the medication reconciliation. Patient came from [facility] with medication list. Mar Rosales, JocelynD
--- NOTE | 2022-12-02 21:33 | ECG_ITS ---
Test Reason : ams Blood Pressure : / mmHG Vent. Rate : 096 BPM Atrial Rate : 096 BPM P-R Int : 174 ms QRS Dur : 106 ms QT Int : 356 ms P-R-T Axes : 072 022 057 degrees QTc Int : 449 ms Sinus rhythm with Premature atrial complexes Incomplete right bundle branch block Nonspecific T wave abnormality Abnormal ECG When compared with ECG of 29-FEB-2020 12:21, Premature atrial complexes are now Present Nonspecific T wave abnormality is now Present Referred By: Adis Mack Electronically Signed By:CON ALDRIDGE
--- NOTE | 2022-12-02 21:37 | ED_ITS ---
HPI - Altered Mental Status General Chief Complaint: Altered Mental Status Stated Complaint: increased confusion and hypertension Time Seen by Provider: 12/02/22 21:20 Source: patient, EMS, RN notes reviewed and old records reviewed Mode of arrival: EMS Limitations: altered mental status History of Present Illness HPI narrative: 72-year-old male vet at the [facility] came in by ambulance patient was sent for evaluation of acute change mental status patient was found by the nurse to be hypertensive 199/121 patient also was aggressive with assaulting behavior to the staff, and refusing to take his medication. Reviewing half-way report patient at baseline is not alert, disoriented and confused, needs a walker to ambulate at baseline. No reported falling, patient in the emergency department is limited historian unable to answer why he is in the emergency department today. Complaining of abdominal pain. Patient is a DNR/DNI. Related Data Home Medications Medication Instructions Recorded Confirmed carbidopa 25 mg-levodopa 100 mg 1 tab PO QID 02/29/20 12/02/22 tablet acetaminophen 325 mg tablet 650 mg PO Q4H PRN Pain 12/02/22 12/02/22 albuterol sulfate 90 mcg/actuation 1 puff inhalation QID PRN Wheezing 12/02/22 12/02/22 aerosol inhaler calcium polycarbophil 625 mg tablet 1,250 mg PO BEDTIME 12/02/22 12/02/22 carbidopa ER 50 mg-levodopa 200 mg 1 tab PO BEDTIME 12/02/22 12/02/22 tablet,extended release cholecalciferol (vitamin D3) 25 25 mcg PO DAILY 12/02/22 12/02/22 mcg (1,000 unit) tablet clonazepam 0.5 mg tablet 0.5 mg PO BEDTIME 12/02/22 12/02/22 cyanocobalamin (vitamin B-12) 1,000 mcg IM QMONTH 12/02/22 12/02/22 1,000 mcg/mL injection kit famotidine 20 mg tablet 20 mg PO DAILY 12/02/22 12/02/22 gabapentin 100 mg capsule 100 mg PO TID 12/02/22 12/02/22 ibuprofen 400 mg tablet 400 mg PO BID 12/02/22 12/02/22 polyethylene glycol 3350 17 17 g PO DAILY 12/02/22 12/02/22 gram/dose oral powder (Miralax) sennosides 8.6 mg tablet (senna) 8.6 mg PO BID 12/02/22 12/02/22 sertraline 100 mg tablet 100 mg PO DAILY 12/02/22 12/02/22 trazodone 50 mg tablet 50 mg PO BEDTIME 12/02/22 12/02/22 Allergies Allergy/AdvReac Type Severity Reaction Status Date / Time No Known Allergies Allergy Verified 02/29/20 11:59 [No Known Allergies*] Review of Systems 2 Review of Systems: All other systems are reviewed and are negative Constitutional: Reports as per HPI and Reports no additional constitutional complaints Eyes: Reports as per HPI and Reports no additional eye complaints Reports system reviewed and no additional complaints, except as documented Cardiovascular: Reports as per HPI and Reports no additional cardiovascular complaints Respiratory: Reports as per HPI and Reports no additional respiratory complaints Gastrointestinal: Reports as per HPI and Reports no additional gastrointestinal complaints Genitourinary: Reports no additional female genitourinary complaints Musculoskeletal: Reports no additional musculoskeletal complaints Skin/Breast: Reports system reviewed and no additional complaints, except as docu Psychiatric: Reports no additional psychiatric complaints Endocrine: Reports no additional endocrine complaints Hematologic/Lymphatic: Reports no additional hematologic/lymphatic complaints Allergic/Immunologic: Reports no additional allergic/immunologic complaints Reports system reviewed and no additional complaints, except as documented and Reports Abnormal speech present [facility] Past Medical History Medical History Hypertension Multiple sclerosis Parkinsons Social History Social History Alcohol intake: unknown Smoked in Last 30 Days: No Use of substances other than those prescribed or required for medical reasons: No Advance Directives: No Advance Directives Information Provided: No Physical Exam ED Vital Signs: Vital Signs - 24 hr 12/02/22 20:39 12/02/22 20:44 12/02/22 22:41 Temperature 98.7 F 98.7 F Pulse Rate 97 97 101 H Respiratory Rate 26 H 26 H 28 H Blood Pressure 169/100 H 169/100 H 192/112 H Pulse Oximetry 96 96 96 Oxygen Delivery Method Room Air Room Air Room Air 12/03/22 00:04 12/03/22 01:11 12/03/22 02:22 Temperature 97.8 F Pulse Rate 96 106 H 101 H Respiratory Rate 27 H 17 14 Blood Pressure 168/106 H 192/110 H 204/97 H Pulse Oximetry 96 96 96 Oxygen Delivery Method Room Air Room Air Room Air 12/03/22 02:27 12/03/22 06:41 Temperature Pulse Rate 106 H Respiratory Rate 15 Blood Pressure 158/102 H 168/98 H Pulse Oximetry 93 Oxygen Delivery Method Room Air BMI result Body Mass Index 23.7 Vital signs have been reviewed as appeared to be correct. Blood pressure normal. Heart rate normal. Respiration rate normal. Temperature normal. Oxygen saturation normal. Appearance: Alert. Disoriented to time/place/person's/events. No acute distress. Head: Normal external exam. Normocephalic. Atraumatic. No Mosley signs noted. No raccoon eyes noted Eyes: PERRLA. EOMI. Conjunctiva and sclera normal. Eyelids normal. ENT: TM's Normal. Pharynx normal. Uvula midline. Moist mucous membranes. No trismus noted. No drooling noted. No muffled voice noted. Neck: Normal inspection. Neck supple. FROM. No adenopathy. Thyroid Normal. No meningeal signs. No neck mass noted. CVS: Normal heart rate and rhythm. Heart sound normal. No murmurs noted. Pulses normal throughout. Respiratory: No respiratory distress. Painless inspiration. Breath sounds normal. No wheezes/rales/rhonchi noted. Chest nontender. No accessory muscle usage noted or decreased air movement noted. Abdomen: Soft and nontender. Bowel sounds normal in all 4 quadrants. No distention noted. No organomegaly noted. No visible injury noted. Back: No CVA tenderness. Full range of motion noted. Skin: Skin warm and dry. Normal skin color. Normal skin turgor. No rashes/lesions/lacerations noted. Extremities: No lower extremity edema. Extremities exhibit normal range of motion. Extremities nontender. Neuro: Oriented X 3. Cranial nerve exam: II-XII are grossly intact No motor deficit. No sensory deficit. Reflexes normal. Course Course Course Narrative: Physician observation ended at 856am Patient seen and cleared by CARE team. BP down, calm and cooperative here can go back to facility. At baseline. [facility] Medications Administered Discontinued Medications Generic Name Dose Route Start Last Admin Trade Name Freq PRN Reason Stop Dose Admin Amlodipine Besylate 5 mg 12/02/22 23:03 12/02/22 23:13 Amlodipine Besylate 5 Mg Tablet PO 12/02/22 23:04 5 mg ONCE ONE Administration Protocol Amlodipine Besylate 5 mg 12/03/22 02:24 12/03/22 02:37 Amlodipine Besylate 5 Mg Tablet PO 12/03/22 02:25 5 mg ONCE ONE Administration Protocol Medical Decision Making Differential Diagnosis Differential Diagnoses: The differential diagnosis associated with the presentation includes (anemia, electrolytes abnormality, essitional HTN, behavior disorder, UTI, follow up on AAA.) Admission/Observation Consideration of admission/observation: Escalation of care including admission/observation considered Lab Data MDM Lab Attestation statement: I reviewed the patient's lab results. 12/02/22 22:20 12/02/22 22:20 Labs: Lab Results 12/02/22 12/03/22 12/03/22 Range/Units 22:20 00:25 02:32 WBC 7.6 (4.8-10.8) X10*3/uL RBC 4.66 (4.60-5.80) X10*6/uL Hgb 14.6 (14.0-18.0) g/dl Hct 42.0 (42.0-52.0) % MCV 90.1 (80.0-98.0) fL MCH 31.3 (27.0-33.0) pg MCHC 34.8 (31.0-36.0) g/dl RDW 12.4 (11.0-16.0) % Plt Count 229 (160-400) X10*3/uL MPV 10.5 (9.4-12.4) fL Immature Gran % (Auto) 0.1 (0.0-0.4) % Neut % (Auto) 71.2 (45-73) % Lymph % (Auto) 20.0 (20-40) % [place] % (Auto) 8.3 (2-11) % Eos % (Auto) 0.1 (0-4) % Baso % (Auto) 0.3 (0-2) % Lymph # (Auto) 1.5 (1.2-4.9) X10*3/uL [place] # (Auto) 0.6 (0.1-1.2) X10*3/uL Eos # (Auto) 0.0 (0.0-0.4) X10*3/uL Baso # (Auto) 0.0 (0.0-0.2) X10*3/uL Abs Immat Gran (auto) 0.01 (0.00-0.03) X10*3/uL Absolute Neuts (auto) 5.4 (2.0-8.3) x10*3/uL Absolute Nucleated RBC 0.000 (0.0-0.012) X10*3/uL Nucleated RBC % (auto) 0.0 (0.0-0.2) /100WBC Sodium 142 (135-145) mmol/L Potassium 3.7 (3.3-5.1) mmol/L Chloride 107 (96-108) mmol/L Carbon Dioxide 26 (22-29) mmol/L Anion Gap 13 (12-20) BUN 19 H (9-16) mg/dL Creatinine 0.84 (0.5-1.4) mg/dL Estim Creat Clear Calc 75.7 Estimated GFR > 60 Random Glucose 109 (60-115) mg/dL Calcium 9.6 (8.4-10.2) mg/dL Total Bilirubin 0.5 (0.0-1.0) mg/dL Direct Bilirubin 0.2 (0.0-0.5) mg/dL AST 15 (5-37) U/L ALT 9 (0-40) U/L Alkaline Phosphatase 74 (39-117) U/L Troponin I High Sens 3.2 4.7 (<3.5-35.0) ng/L B-Natriuretic Peptide 32 (<100) pg/mL Total Protein 7.4 (6.5-8.0) g/dL Albumin 4.5 (3.5-5.0) g/dL Lipase 13 (8-78) U/L Urine Color Yellow Urine Appearance Clear Urine pH 6.0 (5.0-9.0) Ur Specific [place] 1.025 (1.005-1.025) Urine Protein Trace (Neg-Trace) mg/dL Urine Glucose (UA) Negative (Negative) mg/dL Urine Ketones Trace (Negative) mg/dL Urine Blood Negative (Negative) Urine Nitrite Negative (Negative) Ur Leukocyte Esterase Negative (Negative) Urine Opiates Screen Not Detected (Not Detect) Urine Fentanyl Screen Not Detected (Not Detect) Ur Barbiturates Screen Not Detected (Not Detect) Ur Phencyclidine Scrn Not Detected (Not Detect) Ur Amphetamines Screen Not Detected (Not Detect) U Benzodiazepines Scrn Not Detected (Not Detect) Urine Cocaine Screen Not Detected (Not Detect) U Marijuana (THC) Screen Not Detected (Not Detect) Independent Interpretation I performed an independent interpretation of an: CT Scan (abd/pelvis/ head: stable AAA, no acute intracranial pathology.) Radiology Impression Discussion of test interpretation with radiology: I have reviewed the radiologist's reading. Chronic Conditions Patient?s care impacted by: Hypertension Discharge Plan Discharge Clinical Impression: Altered mental status, Abdominal aortic aneurysm (AAA) HTN (hypertension) Qualifiers: Hypertension type: unspecified Qualified Code(s): I10 - Essential (primary) hypertension Patient Disposition: Home, Self-Care Instructions: Hypertension (ED), Altered Mental Status (ED) Additional Instructions: if blood pressure remains high would start on 2.5mg or 5mg of amlodipine daily was given dose in ED on 12/02 evening responded well. cleared by our CARE social work team. incidental finding of aortic aneurysm on CT scan please follow up with vascular surgery as outpatient call for appointment FINDINGS: LUNG BASES: The visualized lung bases are unremarkable. LIVER, GALLBLADDER, AND BILIARY TREE: The liver is normal in size, shape, and attenuation. There is a 1.5 cm hypodensity left hepatic lobe. No additional lesions seen. There is no intrahepatic ductal dilatation. The gallbladder is unremarkable with no evidence of radiopaque gallstones, gallbladder wall thickening, or obvious pericholecystic inflammatory changes. PANCREAS: Unremarkable. SPLEEN: Unremarkable. ADRENAL GLANDS: There is mild bilateral adrenal gland enlargement. KIDNEYS AND URETERS: The kidneys are normal in size, shape, and attenuation. No punctate 1 mm radiopaque density upper pole right kidney probable small calcification or stone. No additional radiopaque density seen. There is no caliectasis or hydronephrosis. No perinephric stranding. BLADDER: Unremarkable. GASTROINTESTINAL TRACT: There is moderate scattered stool and gas seen throughout the colon without distention. The small bowel loops are normal caliber. Appendix is normal caliber. No free air or free fluid seen. ABDOMINAL WALL: No significant hernia is appreciated. LYMPH NODES: Normal. VASCULAR: There is diffuse aneurysmal dilatation of entire abdominal aorta. The proximal abdominal aorta measures 2.7 x 2.8 cm on axial image 32/12, mid abdominal aorta measures 4.8 x 4.8 cm, distal abdominal aorta above the common iliac bifurcation measures 2.3 x 3.2 cm. PELVIC VISCERA: There is a right inguinal hernia containing loop of small bowel loop but no proximal bowel obstruction seen. The prostate gland is mildly enlarged OSSEOUS STRUCTURES: There is grade 1 anterolisthesis L4 over L5 with L4-L5 degenerative disc changes and spondylosis. There is Schmorl's nodule superior endplate L2 vertebra. CT/CT abdomen pelvis wo IV con IMPRESSION: Aneurysmal dilatation of abdominal aorta with measurements given above. Bilateral adrenal enlargement. Nonobstructive tiny calcification or stone upper pole right kidney measuring 1 mm. Moderate constipation. Mild prostate enlargement. Right inguinal hernia containing a loop of small bowel without bowel obstruction. Fleischner guidelines were followed. Prescriptions: No Action carbidopa-levodopa 25-100 mg Tablet 1 tab PO QID sennosides [senna] 8.6 mg Tablet 8.6 mg PO BID acetaminophen 325 mg Tablet 650 mg PO Q4H PRN (Reason: Pain) trazodone 50 mg Tablet 50 mg PO BEDTIME clonazepam 0.5 mg Tablet 0.5 mg PO BEDTIME Rx Instructions: administer 30 minutes before bedtime carbidopa-levodopa 50-200 mg Tablet Extended Release 1 tab PO BEDTIME sertraline 100 mg Tablet 100 mg PO DAILY famotidine 20 mg Tablet 20 mg PO DAILY calcium polycarbophil 625 mg Tablet 1,250 mg PO BEDTIME ibuprofen 400 mg Tablet 400 mg PO BID gabapentin 100 mg Capsule 100 mg PO TID polyethylene glycol 3350 [Miralax] 17 gram/dose Powder 17 g PO DAILY albuterol sulfate 90 mcg/actuation Hfa Aerosol Inhaler 1 puff INHALATION QID PRN (Reason: Wheezing) cholecalciferol (vitamin D3) 25 mcg (1,000 unit) Tablet 25 mcg PO DAILY cyanocobalamin (vitamin B-12) 1,000 mcg/mL Kit 1,000 mcg IM QMONTH Referrals: Gurpreet Joseph MD [Physician] - (vascular surgery call for appointment) Interventions: ED Discharge Assessment Last Done: 12/03/22 11:16 Discharge Date/Time: 12/03/22 11:18
--- NOTE | 2022-12-02 22:11 | PC.NURSE ---
Provider Corona notified of pts b/p. Plan of care ongoing.
[2022-12-02 22:27] LABS: MANUAL DIFF FLAG NO
[2022-12-02 22:28] LABS: Basophils Percent Auto 0.3 % (0-2); Eosinophils Percent Auto 0.1 % (0-4); Hemoglobin 14.6 g/dl (14.0-18.0); Imm Gran Abs Auto 0.01 X10*3/uL (0.00-0.03); Imm Gran Pct Auto 0.1 % (0.0-0.4); Lymphocytes Absolute Auto 1.5 X10*3/uL (1.2-4.9); Mean Corpuscular HGB Conc 34.8 g/dl (31.0-36.0); Mean Corpuscular Hemoglobin 31.3 pg (27.0-33.0); Mean Corpuscular Volume 90.1 fL (80.0-98.0); Mean Platelet Volume 10.5 fL (9.4-12.4); Monocytes Absolute Auto 0.6 X10*3/uL (0.1-1.2); Monocytes Percent Auto 8.3 % (2-11); Neutrophils Absolute Auto 5.4 x10*3/uL (2.0-8.3); Neutrophils Percent Auto 71.2 % (45-73); Platelet Count 229 X10*3/uL (160-400); Red Blood Count 4.66 X10*6/uL (4.60-5.80); Red Cell Distribution Width 12.4 % (11.0-16.0); White Blood Count 7.6 X10*3/uL (4.8-10.8)
[2022-12-02 22:41] VITALS: BP 192/112; PULSE 101; RESP 28; O2SAT 96
--- NOTE | 2022-12-02 22:44 | PC.NURSE ---
b/p 192/112 Provider murphy made aware. plan of care ongoing.
[2022-12-02 22:46] LABS: Alanine Aminotransferase 9 U/L (0-40); Albumin Level 4.5 g/dL (3.5-5.0); Alkaline Phosphatase 74 U/L (39-117); Anion Gap 13 (12-20); Aspartate Amino Transferase 15 U/L (5-37); Bilirubin Direct 0.2 mg/dL (0.0-0.5); Bilirubin Total 0.5 mg/dL (0.0-1.0); Blood Urea Nitrogen 19 mg/dL (9-16); Calcium 9.6 mg/dL (8.4-10.2); Carbon Dioxide 26 mmol/L (22-29); Chloride 107 mmol/L (96-108); Creatinine Clr Calc Pharmacy 75.7; Estimated Glomerular Filt Rate > 60; Glucose Random 109 mg/dL (60-115); Lipase 13 U/L (8-78); Potassium 3.7 mmol/L (3.3-5.1); Sodium 142 mmol/L (135-145); Total Protein 7.4 g/dL (6.5-8.0)
[2022-12-02 22:50] LABS: B Type Natriuretic Peptide 32 pg/mL (<100)
[2022-12-02 22:56] LABS: Troponin-I High Sensitivity 3.2 ng/L (<3.5-35.0)
[2022-12-02] MEDS: amLODIPine Besylate 5 MG TABLET PO (23:13)
--- NOTE | 2022-12-02 23:14 | PC.NURSE ---
Pt medicated per may. pt repositioned in bed Pt reports he needed to urinate placed on urinal nut then stated he did not need to go. plan of care ongoing
--- NOTE | 2022-12-02 23:33 | PC.NURSE ---
Pt attempting to get out of bed. Pt redirected into bed b/p 199/112 provider murphy made aware. plan of care ongoing
[2022-12-03 00:04] VITALS: BP 168/106; PULSE 96; RESP 27; TEMP 36.6; O2SAT 96
[2022-12-03 00:35] LABS: Appearance Urine Clear; Color Urine Yellow; Glucose Urine UA Negative (Negative); Leukocyte Esterase Urine Negative (Negative); Nitrite Urine Negative (Negative); Specific Gravity - Urine 1.025 (1.005-1.025); Urine Blood Negative (Negative); Urine Ketones Trace mg/dL (Negative); Urine Protein Trace mg/dL (Neg-Trace)
--- NOTE | 2022-12-03 00:41 | PC.NURSE ---
Pt UA collected and sent. provider made aware. plan of care ongoing.
[2022-12-03 01:11] VITALS: BP 192/110; PULSE 106; RESP 17; O2SAT 96
--- NOTE | 2022-12-03 01:18 | PC.NURSE ---
Provider Corona made aware of pts b/p 192/110.
[2022-12-03 02:22] VITALS: BP 204/97; PULSE 101; RESP 14; O2SAT 96
--- NOTE | 2022-12-03 02:23 | MHC.EDTECH ---
Patient found incontinent of urine. Patient cleaned, and linens changed.
--- NOTE | 2022-12-03 02:24 | PC.NURSE ---
Provider Corona made aware of B/P 204/92.
[2022-12-03 02:27] VITALS: BP 158/102
[2022-12-03] MEDS: amLODIPine Besylate 5 MG TABLET PO (02:37)
--- NOTE | 2022-12-03 02:39 | PC.NURSE ---
Pt medicated per may. Pt repositioned for comfort. Plan of care ongoing
[2022-12-03 02:54] LABS: Troponin-I High Sensitivity 4.7 ng/L (<3.5-35.0)
--- NOTE | 2022-12-03 03:08 | PC.NURSE ---
Provider Corona notified of pts b/p.
--- NOTE | 2022-12-03 03:08 | PC.NURSE ---
Plan of care ongoing. Provider would like care team to see him in the morning.
--- NOTE | 2022-12-03 03:15 | PC.NURSE ---
This RN spoke with [facility]. Angelic called ED to get an update on the pt. This RN explained pt being tx for high b/p and the pt is staying until the morning to be eval by our care team.
[2022-12-03 06:41] VITALS: BP 168/98; PULSE 106; RESP 15; O2SAT 93
--- NOTE | 2022-12-03 06:43 | PC.NURSE ---
Pt b/p 183/108 @ 0610. Provider Corona notified.
--- NOTE | 2022-12-03 07:58 | MHC.EDTECH ---
Addendum entered by Cordelia Caban 12/03/22 08:01: pt not in need of urine sample Original Note: pt had urinated in the bed, unable to correctly use urinal. Pt cleaned, bed linens changed and pt sat up in bed. call light placed within reach. Pt still in need of a urine sample, [place] cath placed by rn order
--- NOTE | 2022-12-03 09:14 | MHC.CARE ---
CARE Team spoke with [facility] RN on [phone] who reported Pt had new? onset of aggression last evening.? Pts has had? no ongoing recent psychiatric concerns or periods of aggression/ agitation. Pt has baseline dementia.? CARE Team reviewed information with? Dr. Olivares. Plan for Pt to return to [facility] given improvement in Pts symptoms in correlation with Pts blood pressure.??
[2022-12-03 09:15] LABS: Amphetamine Screen Urine Not Detected (Not Detect); Barbiturates, Urine Not Detected (Not Detect); Benzodiazepines Screen Urine Not Detected (Not Detect); Cannabinoid Screen Urine Not Detected (Not Detect); Cocaine Screen Urine Not Detected (Not Detect); Fentanyl, urine Not Detected (Not Detect); Opiate Screen Urine Not Detected (Not Detect); Phencyclidine Screen Urine Not Detected (Not Detect)
== END 2022-12-03 11:18 | disposition home or self-care (01) ==
PROVIDERS: Emergency Provider Emergency Medicine
DX: R41.82 Altered mental status, unspecified (principal); I71.40 Abdominal aortic aneurysm, without rupture, unspecified; I10 Essential (primary) hypertension; F91.8 Other conduct disorders; G35 Multiple sclerosis; G20 Parkinson's disease; Z79.899 Other long term (current) drug therapy
CPT/HCPCS: 36415; 51701; 70450; 71045; 74176; 80048; 80076; 80307; 81003; 83690; 83880; 84484; 85025; 93005; 99284; 99285